=== PATIENT | female | born 1950 | race Caucasian/White ===

== ENCOUNTER 2019-07-12 14:13 | Emergency (ER) | payer MEDICARE, OTHER ==
[2019-07-12] MEDS ORDERED: Albuterol/Ipratropium 3.0-0.5 MG/3 ML Neb Soln ONE (14:15)
[2019-07-12] MEDS ORDERED: Sodium Chloride 0.9% 10 ML Syringe FLUSH PRN (14:22)
[2019-07-12] MEDS ORDERED: Sodium Chloride 0.9% 2.5 ML Syringe FLUSH PRN (14:22)
[2019-07-12] MEDS ORDERED: Ketorolac 30 MG/ML SDV IVPUSH ONE (14:23)
[2019-07-12] MEDS ORDERED: methylPREDNISolone Sodium Succinate 125 MG/2 ML SDV IVPUSH ONE (14:23)
[2019-07-12] MEDS ORDERED: Sodium Chloride 0.9% 1,000 ML IV SCH (14:30)
--- NOTE | 2019-07-12 14:30 | EDM.PDOC ---
ED HPI GENERAL MEDICAL PROBLEM - General Chief Complaint: Respiratory Problem Stated Complaint: SOB Time Seen by Provider: 07/12/19 14:19 - History of Present Illness INITIAL COMMENTS - FREE TEXT/NARRATIVE: HISTORY AND PHYSICAL: History of present illness: The patient is a 68-year-old female with a history of hypertension and anxiety chronic pain issues, for which she takes gabapentin, and a history of 2 partial lobectomies on the left for cancer without any chemotherapy or radiation, for which she is in remission, and presents with complaints of 2 weeks of progressive shortness of breath and feeling tightness in her chest. The patient says that along with the shortness of breath and feeling like she can't get good deep breaths she is having joint pain which is diffuse and body aches as well as persistent crying and tearfulness. She has no specific chest pain but feels a generalized sense of tightness with her breathing and she has no diagnosed history of COPD or pulmonary disease other than the cancer which she is in remission 4. The patient does have a rescue inhaler that she uses as needed and says that she has been using at least 3 times a day since arriving here in [place]. The patient lives in [place] and is here visiting family and arrived here 2 weeks ago and says that she has progressively felt these symptoms since arriving here. She felt prickly fine when she was at home and recently saw her provider in June. She does not have a fever and she did not get her influenza shot this year but she has no coughing no sore throat no abdominal complaints and says she has mostly been drinking coffee. She has no leg pain or swelling and no leg asymmetry and when she talks about the discomfort in her extremities is mostly in her joints but not so much in her muscles. She's had no recent trauma and is eating and drinking normally with normal urine output. The patient is very vague about describing her symptoms and is mostly concerned about her constant crying more so than her breathing and her joint pain. She has a rider at home in [place] but is only visiting here and is planning on leaving after the new year. The patient does not have any sinus congestion or sore throat. The patient also does not have any cardiac history such as stents open heart Review of systems: As per history of present illness and below otherwise all systems reviewed and negative. Past medical history: As per history of present illness and as reviewed below otherwise noncontributory. Surgical history: As per history of present illness and as reviewed below otherwise noncontributory. Social history: No reported history of drug or alcohol abuse. Family history: As per history of present illness and as reviewed below otherwise noncontributory. Physical exam: General: Well-developed well-nourished female who is speaking clearly in the ER and has intermittent episodes of tearfulness. Vital signs are noted by me. She is not breathless but seems to be exhibiting some work of breathing which seems a bit more exaggerated than definitive. HEENT: Atraumatic, normocephalic, pupils reactive, negative for conjunctival pallor or scleral icterus, mucous membranes moist, throat clear, neck supple, nontender, trachea midline. Lungs: Diminished breath sounds throughout all lung araiza more on the left side , which is the site of her prior lobectomy, and there is no wheezing or stridor appreciated but there is not much air exchange overall, breath sounds equal bilaterally, chest nontender. Heart: S1S2, regular rate and rhythm no overt murmurs Abdomen: Soft, nondistended, nontender. Negative for masses or hepatosplenomegaly. Negative for costovertebral tenderness. Pelvis: Stable nontender. Genitourinary: Deferred. Rectal: Deferred. Extremities: Atraumatic, negative for cords or calf pain. Neurovascular unremarkable. No pedal edema or leg asymmetry. On palpation of the muscles of the extremities I do not appreciate any tenderness or compartment swelling and on palpation of the knees ankles and wrists and elbows there is also no soft tissue swelling or joint effusions but a subjective discomfort without bony deformities. Neuro: Awake, alert, oriented. Cranial nerves II through XII unremarkable. Cerebellum unremarkable. Motor and sensory unremarkable throughout. Exam nonfocal. Diagnostics: EKG chest x-ray CBC CMP BNP troponin influenza lactic acid The BNP analyzer is down and there is at least a several hour delay with this results. I will discuss this with the patient as we will not get results at least for several hours so I will cancel that test Therapeutics: IV O2 monitor gentle IV fluids Solu-Medrol duo neb spacer Patient overall looks improved and is no longer tearful and says she is feeling better. I discussed with her and her daughter at bedside at length testing results and options for home. I will give her a spacer to use with her inhaler and directed her to use it regularly for the next 2 days. I will also give her Medrol Dosepak. The patient does have Klonopin and BuSpar for her prescriptions and she is not taking them as prescribed and I advised may be starting to do that as it may help with the tearfulness and her anxiety level. The patient is also out of her primidone and is expecting delivery of that medication and has been out of it for the last 2 weeks and we discussed that potentially this is also triggering some of her symptoms and that restarting that medication may help. Overall the patient and daughter feel comfortable with discharge home. We also talked about reducing caffeine use and pushing more hydration. Impression: Dyspnea unspecified, joint aches/body pain, tearfulness improved Definitive disposition and diagnosis as appropriate pending reevaluation and review of above. - Related Data Allergies Allergy/AdvReac Type Severity Reaction Status Date / Time No Known Allergies Allergy Verified 07/12/19 15:07 Home Meds: Home Meds ClonazePAM [KlonoPIN] 1 tab PO TID 07/12/19 [History] Gabapentin [Neurontin] 900 mg PO DAILY 07/12/19 [History] Metoprolol Tartrate 1 tab PO BID 07/12/19 [History] Omeprazole 40 mg PO DAILY 07/12/19 [History] Primidone 50 mg PO Q8H 07/12/19 [History] Varenicline Tartrate [Chantix] 1 tab PO BID 07/12/19 [History] Venlafaxine [Effexor XR] 150 mg PO DAILY 07/12/19 [History] amLODIPine [Norvasc] 5 mg PO DAILY 07/12/19 [History] busPIRone HCl [Buspirone HCl] 1 tab PO BID 07/12/19 [History] hydroCHLOROthiazide [Hydrochlorothiazide] 25 mg PO DAILY 07/12/19 [History] ED ROS GENERAL - Review of Systems Review Of Systems: Comprehensive ROS is negative, except as noted in HPI. ED EXAM, GENERAL - Physical Exam Exam: See Below (See dictation) Course - Vital Signs Last Recorded V/S: Last Vital Signs Temp 35.7 C 07/12/19 14:16 Pulse 99 07/12/19 14:16 Resp 22 H 07/12/19 14:16 BP 141/71 H 07/12/19 14:16 Pulse Ox 99 07/12/19 14:16 - Orders/Labs/Meds Orders: Active Orders 24 hr Category Date Time Status Cardiac Monitoring [RC] . DIRECTED Care 07/12/19 14:22 Active EKG Documentation Completion [RC] STAT Care 07/12/19 14:22 Active Oxygen Therapy, ED [RC] ASDIRECTED Care 07/12/19 14:22 Active Pulse Oximetry [RC] ASDIRECTED Care 07/12/19 14:22 Active RT Aerosol Therapy [RC] ASDIRECTED Care 07/12/19 14:54 Active B-TYPE NATRIURETIC PEPTIDE,BNP [CHEM] Stat Lab 07/12/19 14:45 Stop Req Sodium Chloride 0.9% [Normal Saline] 1,000 ml Med 07/12/19 14:30 Active IV ASDIRECTED Sodium Chloride 0.9% [Saline Flush] Med 07/12/19 14:22 Active 10 ml FLUSH ASDIRECTED PRN Sodium Chloride 0.9% [Saline Flush] Med 07/12/19 14:22 Active 2.5 ml FLUSH ASDIRECTED PRN Saline Lock Insert [OM.PC] Stat Oth 07/12/19 14:22 Ordered Medication Orders Sodium Chloride (Normal Saline) 1,000 mls @ 83 mls/hr IV ASDIRECTED BUCK Last Admin: 07/12/19 14:54 Dose: 83 mls/hr Sodium Chloride (Saline Flush) 10 ml FLUSH ASDIRECTED PRN PRN Reason: Keep Vein Open Sodium Chloride (Saline Flush) 2.5 ml FLUSH ASDIRECTED PRN PRN Reason: Keep Vein Open Labs: Laboratory Tests 07/12/19 07/12/19 07/12/19 Range/Units 14:45 14:45 14:45 WBC 6.01 (4.0-11.0) K/uL RBC 3.79 L (4.30-5.90) M/uL Hgb 12.6 (12.0-16.0) g/dL Hct 36.8 (36.0-46.0) % MCV 97.1 (80.0-98.0) fL MCH 33.2 H (27.0-32.0) pg MCHC 34.2 (31.0-37.0) g/dL RDW Std Deviation 45.3 (28.0-62.0) fl RDW Coeff of Katrina 13 (11.0-15.0) % Plt Count 212 (150-400) K/uL MPV 11.00 (7.40-12.00) fL Neut % (Auto) 38.8 L (48.0-80.0) % Lymph % (Auto) 46.9 H (16.0-40.0) % Wetzel % (Auto) 7.7 (0.0-15.0) % Eos % (Auto) 6.3 (0.0-7.0) % Baso % (Auto) 0.3 (0.0-1.5) % Neut # (Auto) 2.3 (1.4-5.7) K/uL Lymph # (Auto) 2.8 H (0.6-2.4) K/uL Wetzel # (Auto) 0.5 (0.0-0.8) K/uL Eos # (Auto) 0.4 (0.0-0.7) K/uL Baso # (Auto) 0.0 (0.0-0.1) K/uL Lactate 1.7 (0.20-2.00) mmol/L Sodium 140 (136-145) mmol/L Potassium 4.1 (3.5-5.1) mmol/L Chloride 105 (98-107) mmol/L Carbon Dioxide 20.5 L (21.0-32.0) mmol/L BUN 15 (7.0-18.0) mg/dL Creatinine 1.4 H (0.6-1.0) mg/dL Est Cr Clr Drug Dosing TNP Estimated GFR (MDRD) 37.2 ml/min Glucose 102 (74-106) mg/dL Calcium 9.1 (8.5-10.1) mg/dL Total Bilirubin 0.2 (0.2-1.0) mg/dL AST 27 (15-37) IU/L ALT 37 (14-63) IU/L Alkaline Phosphatase 59 (46-116) U/L Troponin I < 0.050 (0.000-0.056) ng/mL Total Protein 8.1 (6.4-8.2) g/dL Albumin 4.2 (3.4-5.0) g/dL Globulin 3.9 (2.6-4.0) g/dL Albumin/Globulin Ratio 1.1 (0.9-1.6) Meds: Medications Generic Name Dose Route Start Last Admin Trade Name Freq PRN Reason Stop Dose Admin Sodium Chloride 1,000 mls @ 83 mls/hr 07/12/19 14:30 07/12/19 14:54 Normal Saline IV 83 mls/hr ASDIRECTED BUCK Administration Sodium Chloride 10 ml 07/12/19 14:22 Saline Flush FLUSH ASDIRECTED PRN Keep Vein Open Sodium Chloride 2.5 ml 07/12/19 14:22 Saline Flush FLUSH ASDIRECTED PRN Keep Vein Open Discontinued Medications Generic Name Dose Route Start Last Admin Trade Name Freq PRN Reason Stop Dose Admin Albuterol/Ipratropium Confirm 07/12/19 14:15 07/12/19 14:54 Duoneb 3.0-0.5 Mg/3 Ml Administered 07/12/19 14:16 Not Given Dose 3 ml .ROUTE .STK-MED ONE Albuterol/Ipratropium 3 ml 07/12/19 14:54 07/12/19 14:55 Duoneb 3.0-0.5 Mg/3 Ml NEB 07/12/19 14:55 3 ml ONETIME ONE Administration Ketorolac Tromethamine 30 mg 07/12/19 14:23 07/12/19 14:51 Toradol IVPUSH 07/12/19 14:24 30 mg ONETIME ONE Administration Methylprednisolone Sodium Succinate 125 mg 07/12/19 14:23 07/12/19 14:51 Solu-Medrol IVPUSH 07/12/19 14:24 125 mg ONETIME ONE Administration Departure - Departure Time of Disposition: 15:57 Disposition: Home, Self-Care 01 Condition: Good Clinical Impression: Dyspnea Qualifiers: Dyspnea type: unspecified Qualified Code(s): R06.00 - Dyspnea, unspecified Joint pain Qualifiers: Joint pain location: unspecified Qualified Code(s): M25.50 - Pain in unspecified joint - Discharge Information Referrals: PCP,Not In Area [Primary Care Provider] - Forms: ED Department Discharge Additional Instructions: The following information is given to patients seen in the emergency department who are being discharged to home. This information is to outline your options for follow-up care. We provide all patients seen in our emergency department with a follow-up referral. The need for follow-up, as well as the timing and circumstances, are variable depending upon the specifics of your emergency department visit. If you don't have a primary care physician on staff, we will provide you with a referral. We always advise you to contact your personal physician following an emergency department visit to inform them of the circumstance of the visit and for follow-up with them and/or the need for any referrals to a consulting specialist. The emergency department will also refer you to a specialist when appropriate. This referral assures that you have the opportunity for followup care with a specialist. All of these measure are taken in an effort to provide you with optimal care, which includes your followup. Under all circumstances we always encourage you to contact your private physician who remains a resource for coordinating your care. When calling for followup care, please make the office aware that this follow-up is from your recent emergency room visit. If for any reason you are refused follow-up, please contact the [facility] emergency department at and ask to speak to the emergency department charge nurse. Primary care- [place] [address] Please use your inhaler 1-2 puffs every 6 hours with a spacer you have been given for the next 2 days and then every 6 hours as needed with a spacer. Please fill your prescription for the Medrol Dosepak and started tomorrow. Please also review your medications and increase her BuSpar and Klonopin per the prescription guidelines as you choose to try to see if that will help some of the emotional issues that are occurring. When you get your prescription for the primidone in the mail please restarted. Push hydration and reduce caffeine use. Return to ER as needed and as discussed. Plan to follow-up with your provider when you get home in [place] or connect with one of hours for reevaluation and further care. - My Orders Last 24 Hours: My Active Orders 07/12/19 14:22 Cardiac Monitoring [RC] . DIRECTED EKG Documentation Completion [RC] STAT Oxygen Therapy, ED [RC] ASDIRECTED Pulse Oximetry [RC] ASDIRECTED Sodium Chloride 0.9% [Saline Flush] 10 ml FLUSH ASDIRECTED PRN Sodium Chloride 0.9% [Saline Flush] 2.5 ml FLUSH ASDIRECTED PRN Saline Lock Insert [OM.PC] Stat 07/12/19 14:30 Sodium Chloride 0.9% [Normal Saline] 1,000 ml IV ASDIRECTED 07/12/19 14:45 B-TYPE NATRIURETIC PEPTIDE,BNP [CHEM] Stat 07/12/19 14:54 RT Aerosol Therapy [RC] ASDIRECTED - Assessment/Plan Last 24 Hours: My Active Orders 07/12/19 14:22 Cardiac Monitoring [RC] . DIRECTED EKG Documentation Completion [RC] STAT Oxygen Therapy, ED [RC] ASDIRECTED Pulse Oximetry [RC] ASDIRECTED Sodium Chloride 0.9% [Saline Flush] 10 ml FLUSH ASDIRECTED PRN Sodium Chloride 0.9% [Saline Flush] 2.5 ml FLUSH ASDIRECTED PRN Saline Lock Insert [OM.PC] Stat 07/12/19 14:30 Sodium Chloride 0.9% [Normal Saline] 1,000 ml IV ASDIRECTED 07/12/19 14:45 B-TYPE NATRIURETIC PEPTIDE,BNP [CHEM] Stat 07/12/19 14:54 RT Aerosol Therapy [RC] ASDIRECTED
[2019-07-12] MEDS ORDERED: Albuterol/Ipratropium 3.0-0.5 MG/3 ML Neb Soln NEB ONE (14:54)
[2019-07-12 15:29] LABS: BLOOD UREA NITROGEN,BUN 15 mg/dL (7.0-18.0); CARBON DIOXIDE,CO2 20.5 mmol/L (21.0-32.0); CHLORIDE,CL 105 mmol/L (98-107); GLUCOSE RANDOM 102 mg/dL (74-106); POTASSIUM,K 4.1 mmol/L (3.5-5.1); SODIUM,NA 140 mmol/L (136-145)
--- NOTE | 2019-07-12 15:30 | CR ---
Chest: Frontal view of the chest was obtained. Comparison: No previous chest x-ray. Slight interstitial changes noted within the left mid to lower lung. Lungs otherwise are clear. Heart is at the upper limits of normal. Tortuous thoracic aorta is seen. Bony structures are grossly intact. Impression: 1. Slight interstitial change on the left side as noted above. This is most likely chronic but would need old films to confirm. 2. Nothing acute is otherwise seen on AP chest x-ray. Diagnostic code #3 This report was dictated in [place] Standard Time MTDD
== END 2019-07-12 16:20 | disposition home or self-care (01) ==
LOC: MW.ED 14:13
DX: R06.02 Shortness of breath (principal); M25.50 Pain in unspecified joint; R45.89 Other symptoms and signs involving emotional state; I10 Essential (primary) hypertension; F41.9 Anxiety disorder, unspecified
CPT/HCPCS: 36415; 71045; 80053; 83605; 83880; 84484; 85025; 87804; 93005; 94640; 96361; 96374; 96375; 99285; J1885; J2930; J7030; J7620-GY